=== PATIENT | female | born 1995 | race Caucasian/White ===

== ENCOUNTER 2017-12-06 19:15 | Emergency (ER) | payer BC, SELFPAY ==
[2017-12-06 19:17] VITALS: BP 141/84; PULSE 127; RESP 14; TEMP 37.2; O2SAT 97; BMI 26.2
[2017-12-06] MEDS: 0.9% Normal Saline 1,000 ML 1000 ML IV (19:50)
[2017-12-06] MEDS: proMETHazine 25 MG/ML Syringe 12.5 MG IV (19:50)
--- NOTE | 2017-12-06 19:52 | ED.VISSUMM ---
- ER Visit Summary Date of Service: 12/06/17 Chief Complaint: Nausea vomiting dizzy History of Present Illness: The patient is a 22 F who states that last evening she had numerous episodes of diarrhea. Today she had a normal bowel movement and was feeling okay and she went to work. Ran 1400 hrs. began to feel dizzy and eventually developed vomiting. She felt better and continued working until 1500 hrs. when she needed to go home. She continued to have vomiting at home and notes intermittent crampy abdominal pain. No fevers Physical Examination: Afebrile vital signs are stable Gen: Well-nourished well-developed Head: Normocephalic atraumatic Eyes: Perrl EOMI ENT: TMs clear no rhinorrhea moist mucous membranes Neck: Supple no lymphadenopathy no JVD nontender CVS: Regular rate rhythm no murmurs normal S1-S2 Respiratory: No distress clear to auscultation bilaterally chest nontender Abdomen: Soft mild tenderness to palpation. Nondistended normal bowel sounds no masses Back: Nontender Extremity: Nontender no edema Skin: Normal color no rash Neuro: alert orientated ?3 CN II-XII intact normal strength sensation reflexes gait cerebellar Psych: Normal affect normal mood Test Results: White count 13.2. CMP lipase normal. test negative. Emergency Department Course and Treatment: Patient received IV fluids Phenergan and Zofran. Her pain continues to be intermittent. It is not localized. Patient will be discharged home with Zofran instructions for rest. Return if worsening or concerns (fever, inability to tolerate p.o., localizing pain, etc.). Patient will follow up in 24 hours if continued symptoms or worsening. She understands to come to the emergency room if she cannot secure outpatient follow-up at that time. Impression: 1. Gastroenteritis This note was generated with [employer] dictation software. It may contain incorrect words, spelling, and punctuation that were not noted in review of the chart prior to signing ED Disposition - Plan for ED Patient: Disposition: Home or Assisted Living Chief Complaint: Dizziness Instructions: ED Gastroenteritis Viral Prescriptions: Ondansetron [Zofran Odt] 4 mg PO Q8H PRN PRN #10 tab PRN Reason: Nausea Referrals: Maribell Snell MD [STAFF PHYSICIAN] - As Needed Additional Instructions: If worsening abdominal pain or pain that is localizing or fever or worsening or concerns please return to the emergency department.
[2017-12-06 20:17] LABS: Absolute Lymphocyte Count 0.56 X10^3/ul (0.83-4.51); Absolute Neutrophil Count 12.3 X10^3/uL (2.0-7.7); Basophil# 0.01 X10^3/uL; Basophil% 0.1 % (0-1); Differential Indicated SCAN CRITERIA MET; Eosinophil# 0.02 X10^3/uL; Eosinophils% 0.2 % (0-5); Hematocrit 44.1 % (37-47); Hemoglobin 14.5 g/dl (12.0-15.0); Lymphocyte # 0.56 X10^3/ul (4.0); Lymphocyte % 4.2 % (19-41); Mean Corp Hgb Conc 32.9 g/gl (32-36); Mean Corpuscular Hgb 27.7 pg (27.0-32.0); Mean Corpuscular Volume 84.3 fL (81-99); Monocyte# 0.33 X10^3/uL; Monocyte% 2.5 % (0-10); Neutrophil # 12.29 X10^3/uL (2.7-7.7); Neutrophil % 92.8 % (47-70); POSITIVE COUNT NO; POSITIVE DIFFERENTIAL YES; POSITIVE MORPHOLOGY NO; Platelet Count 223 K/mm3 (150-450); RBC Distribution Width CV 13.6 % (11.6-14.6); RBC Distribution Width SD 41.9 fl (35.1-43.9); Red Blood Count 5.23 M/mm3 (4.2-5.4); White Blood Count 13.2 K/mm3 (4.4-11.0)
[2017-12-06 20:28] LABS: AST(SGOT) 16 U/L (15-37); Alanine Aminotransfer ALT/SGPT 27 U/L (13-56); Albumin, Serum 4.3 g/dL (3.2-5.0); Alkaline Phosphatase 62 U/L (45-117); Anion Gap 9 (5-15); BUN 17 mg/dL (7-18); BUN/Creat Ratio 22.5 RATIO (10-20); Calcium,Total 8.7 mg/dL (8.5-10.1); Chloride 105 mmol/L (98-107); Creatinine, Serum 0.75 mg/dL (0.55-1.02); EST Glomerular Filtration Rate 102 mL/min (>60); Est Glom Filt Rate - Afr Amer 123 mL/min (>60); Estimated Creatinine Clearance 127.23 ml/min; Globulin 4.2 g/dL (2.2-4.2); Glucose 91 mg/dL (74-106); Lipase 141 U/L (73-393); Potassium 3.7 mmol/L (3.5-5.1); Protein, Total 8.5 g/dL (6.4-8.2); Sodium Level 137 mmol/L (136-145)
[2017-12-06 20:33] VITALS: BP 118/69; PULSE 109; RESP 16; O2SAT 99
[2017-12-06 20:35] LABS: Pregnancy, Serum, hCG Quali. NEGATIVE Negative (0-9 Nonpreg)
[2017-12-06] MEDS: Ondansetron 4 MG/2 ML Vial IV (20:47)
[2017-12-06] MEDS: Ondansetron ODT 4 MG Tablet 16 MG PO (22:47)
[2017-12-06 22:48] VITALS: PULSE 102; RESP 14; O2SAT 98
== END 2017-12-06 22:53 | disposition home or self-care (01) ==
PROVIDERS: Emergency Provider Emergency Medicine
DX: K52.9 Noninfective gastroenteritis and colitis, unspecified (principal)
CPT/HCPCS: 80053; 83690; 84703; 85025; 96361; 96374; 96375; 99283; J7030; J2405